=== PATIENT | female | born 1995 | race Two or more races ===

== ENCOUNTER → 2017-05-05 | Outpatient (CLI) | payer OTHER | END | disposition home or self-care (01) | LOC: US 14:39 | DX: O09.291 Supervision of pregnancy with other poor reproductive or obstetric history, first trimester (principal); Z3A.01 Less than 8 weeks gestation of pregnancy | CPT/HCPCS: 76801 ==

== ENCOUNTER → 2017-10-10 | Outpatient (CLI) | payer OTHER | END | disposition home or self-care (01) | LOC: US 16:08 | DX: O36.63X0 Maternal care for excessive fetal growth, third trimester, not applicable or unspecified (principal); Z3A.31 31 weeks gestation of pregnancy | CPT/HCPCS: 76805 ==